=== PATIENT | female | born 1985 ===

== ENCOUNTER 2018-02-20 06:36 | Day surgery (SDC) | payer BC ==
--- NOTE | 2018-02-18 14:16 | GHP ---
[f rep st] HISTORY AND PHYSICAL DATE OF ADMISSION: 02/20/2018 ADMITTING DIAGNOSIS: Missed at 6 weeks. HISTORY OF PRESENT ILLNESS: Patient is a 32-year-old 3, para 1-0-1-1 with a last menstrual period 11/23/2017, who presents to establish care at [facility]. 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 She was seen in [place] about a week ago with complaints of bright red vaginal bleeding that was staining her underwear. Sehr had an ultrasound showing that she was not 10 weeks along but was only 6 weeks, pole was noted but no heart rate was seen. She was told to follow up in 1 week, on 02/13/18. The patient presented to my office on . She denies any fevers, chills, nausea, or vomiting. States the vaginal bleeding stopped over the weekend, and then again a few days ago, became heavier with mild cramping. She is now just having brown spotting, and the mild cramping has resolved. The patient believes she is Rh-positive and did not receive RhoGAM in her first or last week in [place] at the hospital. An ultrasound was obtained that revealed an intrauterine at 6 weeks 4 days, supposed to be about 11 weeks 5 days by last menstrual period ; no heart rate was seen, so it is consistent with a missed AB. Condolences were given to the patient. We discussed treatment options including conservative treatment, let nature take its course, versus medical treatment with Cytotec, versus surgical treatment with suction D and C. Patient wanted to wait 1 more week to see if she would pass all the tissue. Miscarriage precautions were given to the patient, and she is to sign a record of release for records. The patient then called my office today, stating she has had continued light bleeding, but has not increased in amount, and not a lot of cramping since the last visit. She desires to proceed with surgical management at this time. Surgery is scheduled for , 02/20/2018, at [address] Ruby Gray. PAST OB HISTORY: In 2012, she had a spontaneous . In 2015, she had a full-term section, a viable male infant, secondary to arrest of dilation, premature rupture of membranes. PAST HOTEL OR MOTEL MANAGER HISTORY: Age of menarche 10. Cycles are monthly. She bleeds for 4-5 days, moderate flow, light cramps. Patient denies a history of abnormal Pap smear. 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 Denies any exposure to any other sexually transmitted diseases. PAST MEDICAL HISTORY: Unremarkable. PAST SURGICAL HISTORY: Unremarkable. CURRENT MEDICATIONS: vitamin. ALLERGIES: No known drug allergies. She is allergic to shrimp and gets a rash. FAMILY HISTORY: Maternal aunt, stomach cancer. SOCIAL HISTORY: The patient is and lives with her and their child. 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 She denies any tobacco use. She drinks once a month or less, and denies any illicit drug use. LABS: Pending. REVIEW OF SYSTEMS: 10-point review of systems is negative, pertinent positives noted in HPI. STUDIES: As above. PHYSICAL EXAMINATION: VITAL SIGNS: On admission, vital signs are stable. Patient is afebrile. GENERAL: Well-nourished, well-developed female, alert and oriented x3. No apparent distress. CARDIOVASCULAR: Regular rate and rhythm. LUNGS: Clear to auscultation bilaterally. ABDOMEN: Soft, nontender, nondistended. PELVIC: Exam was deferred. EXTREMITIES: Normal to inspection without calf tenderness or edema. ASSESSMENT: Patient is a 32-year-old 3, para 1-0-1-1 with a missed at 6 weeks and 4 days. 1. Admit to Labor and Delivery for a suction dilatation and curettage. 2. Bedside consents to be done by the surgeon, Dr. Ruby Gray, the day of procedure. 3. Antibiotics consulting networking engineer to operating room. Doxycycline ordered preoperatively as well as postoperatively. 4. Sequential compression devices for deep venous thrombosis prophylaxis. 5. RhoGAM if the patient is Rh negative. /[id number]/MODL MTDD
[~2018-02-20 06:36] MED LIST: DOXYCYCLINE HYCLATE 100 MG CAP/TAB PO ONE; LR 1,000 ML IV ONE
[2018-02-20] MEDS ORDERED: fentaNYL 100 MCG/2 ML INJ ONE (07:33)
[2018-02-20] MEDS ORDERED: PROPOFOL/EMULSION 500 MG/50 ML BOTTLE IV ONE (07:33)
[2018-02-20] MEDS ORDERED: DEXAMETHASONE 4 MG/ML VIAL ONE (07:35)
[2018-02-20] MEDS ORDERED: ONDANSETRON 4 MG/2 ML VIAL ONE (07:35)
[2018-02-20] MEDS ORDERED: NALOXONE HCL 0.4 MG/ML INJ IVP PRN (07:38)
[2018-02-20] MEDS ORDERED: fentaNYL 100 MCG/2 ML INJ IVP PRN (07:38)
[2018-02-20] MEDS ORDERED: LR 500 ML IV PRN (07:38)
[2018-02-20] MEDS ORDERED: LABETALOL HCL 5 MG/ML 20 ML MDV IVP PRN (07:38)
[2018-02-20] MEDS ORDERED: PROMETHAZINE HCL 25 MG/ML INJ IVP PRN (07:38)
[2018-02-20] MEDS ORDERED: MEPERIDINE 25 MG/ML SYR IVP PRN (07:38)
[2018-02-20] MEDS ORDERED: HYDROCODONE/APAP 5/325 TAB PO PRN (07:38)
[2018-02-20] MEDS ORDERED: PHENYLEPHRINE HCL 100 MCG/ML SYR IVP PRN (07:38)
[2018-02-20] MEDS ORDERED: METOCLOPRAMIDE 10 MG/2 ML VIAL IVP PRN (07:38)
[2018-02-20] MEDS ORDERED: ONDANSETRON 4 MG/2 ML VIAL IVP PRN (07:38)
[2018-02-20] MEDS ORDERED: ACETAMINOPHEN 500 MG TAB PO PRN (07:38)
[2018-02-20] MEDS ORDERED: DEXAMETHASONE 4 MG/ML VIAL IVP PRN (07:38)
[2018-02-20] MEDS ORDERED: ALBUTEROL 3 ML DEYVIAL IH PRN (07:38)
--- NOTE | 2018-02-20 07:38 | PDANEPAE ---
ANE History of Present Illness missed Ab s/f D&C ANE Past Medical History - Pulmonary History Hx Sleep Apnea: No ANE Review of Systems Review of Systems: - Exercise capacity Exercise capacity: >=4 METS ANE Patient History - Allergies Allergies/Adverse Reactions: shrimp Allergy (Verified 02/20/18 06:56) - Home Medications Home medications: home medication list seen and reviewed - NPO status NPO Status: no food or drink >8 hours NPO Since - Liquids (Date): 02/20/18 NPO Since - Liquids (Time): 23:00 NPO Since - Solids (Date): 02/20/18 NPO Since - Solids (Time): 19:00 - Anes Hx Anes Hx: no prior problems - Smoking Hx Smoking Status: Never smoked - Alcohol Use Alcohol Use: Rarely - Family Anes Hx Family Anes Hx: none ANE Labs/Vital Signs - Vital Signs Blood Pressure: 103/78 Heart Rate: 77 Respiratory Rate: 14 O2 Sat (%): 94 Height: 160.02 cm Weight: 64.41 kg ANE Physical Exam - Airway Neck exam: FROM Mallampati Score: Class 1 Mouth exam: normal dental/mouth exam - Pulmonary Pulmonary: no respiratory distress - Cardiovascular Cardiovascular: regular rate and rhythym - ASA Status ASA Status: I ANE Anesthesia Plan Anesthesia Plan: GA with mask Total IV Anesthesia: Yes
--- NOTE | 2018-02-20 07:55 | PDHPUP ---
History & Physical Update H&P update statement: This history and physical update is based on an assessment of the patient which was completed after admission or registration (within 24 hours), but prior to the surgery/procedure. H&P update: no change in patient's condition since H&P completed (no changes)
[2018-02-20] MEDS ORDERED: KETOROLAC 30 MG/1 ML SDV ONE (08:32)
--- NOTE | 2018-02-20 08:45 | POSTANESTH ---
Post Anesthetic Evaluation Cardiovascular Status: Normal, Stable (mildly decreaded BP immediatly post op, but stable with MAP >60. No Tx needed) Respiratory Status: Normal, Stable Level of Consciousness/Mental Status: Can Participate in Eval Pain Control: Adequate, Prn Tx Ordered Nausea/Vomiting Control: Adequate, Prn Tx Ordered Complications Possibly Related to Anesthesia: None Noted
--- NOTE | 2018-02-20 09:36 | POSTOPPROG ---
Post Op Note Date of Operation: 02/20/18 Surgeon: Ruby Gray Anesthesiologist: Joseph Coleman MD Anesthesia: IV Sedation (light general) Pre-op Diagnosis: MAB at 6 wks Post-op Diagnosis: same, Indication: 6w4d on u/s with light bleeding - 11 wks by dates - No FCA Procedure: dilation and currettage Findings: easy dilation to 7.5 Aparna, 7 suction tip used and small currette Inf/Abcess present in the surg proc area at time of surgery?: No Depth: Organ Space EBL: Minimal Total fluids administered: 1200 Specimen(s): RPOCs
[2018-02-20 10:33] VITALS: BP 105/68
== END 2018-02-20 10:40 | disposition home or self-care (01) ==
LOC: FOBOP 06:36 → EDSTATUS 07:30 → FOBOP 10:40
PROVIDERS: ATTEND Obstetrics & Gynecology
PROC: 10D17ZZ Extraction of Products of Conception, Retained, Via Natural or Artificial Opening (ICD-10-PCS; principal; 2018-02-20)
DX: O02.1 Missed abortion (principal)
CPT/HCPCS: J1100; J1885; J2405; J2704; J3010; J7613